=== PATIENT | male | born 1955 | race African-American/Black ===

== ENCOUNTER 2025-03-06 19:41 | Emergency (ER) | payer OTHER ==
[~2025-03-06] VITALS: Ht 182.9 cm; Wt 101.0 kg
[~2025-03-06 19:41] MED LIST: IBUP-2030 PO; PRIL10 PO
[2025-03-06 19:55] VITALS: TEMP 36.7; O2SAT 97
[2025-03-06] MEDS ORDERED: LIDO-53 TP (21:40)
[2025-03-06 21:56] VITALS: PULSE 74; O2SAT 98
[2025-03-06 21:58] VITALS: BP 110/71; RESP 15; TEMP 98.1
[2025-03-06] MEDS: ACETAMINOPHEN 325MG TABLET PO ONE (21:58)
[2025-03-06] MEDS: LIDOCAINE 5% PATCH TOP SCH (21:58)
== END 2025-03-06 22:13 | disposition home or self-care (01) ==
LOC: ER 19:41
DX: R51.9 Headache, unspecified (principal); M25.551 Pain in right hip; Z98.890 Other specified postprocedural states; Z79.899 Other long term (current) drug therapy
CPT/HCPCS: 73080; 99284